=== PATIENT | female | born 2000 | race Caucasian/White ===

== ENCOUNTER 2022-02-22 16:40 | Outpatient (CLI) | payer OTHER ==
[~2022-02-22 16:40] MED LIST: CLARITIN10 MG PO; IBUPROFEN600 MG PO; ZANTAC150 MG PO
== END 2022-02-22 19:19 | disposition home or self-care (01) ==
LOC: GENOP 16:40 → ER1 16:40 → EDSTATUS 16:45 → GENOP 19:19
PROVIDERS: Obstetrics & Gynecology
DX: O99.891 Other specified diseases and conditions complicating pregnancy (principal); N89.8 Other specified noninflammatory disorders of vagina; R10.10 Upper abdominal pain, unspecified; O99.333 Smoking (tobacco) complicating pregnancy, third trimester; F17.290 Nicotine dependence, other tobacco product, uncomplicated; Z3A.29 29 weeks gestation of pregnancy
CPT/HCPCS: 80307; 81001; 87210; G0463

== ENCOUNTER 2022-04-26 15:59 | Outpatient (CLI) | payer OTHER | END 2022-04-26 19:56 | disposition home or self-care (01) | LOC: GENOP 15:59 → OB 16:40 → GENOP 19:56 | DX: O47.1 False labor at or after 37 completed weeks of gestation (principal); O99.343 Other mental disorders complicating pregnancy, third trimester; F32.A Depression, unspecified; F41.9 Anxiety disorder, unspecified; Z3A.38 38 weeks gestation of pregnancy | CPT/HCPCS: 96360; 96361 ==

== ENCOUNTER 2022-05-03 19:37 | Inpatient (IN) | payer OTHER ==
[2022-05-03 23:32] LABS: HEMOGLOBIN 8.5 gm/dl (12.3-15.3); RED BLOOD COUNT 3.7 M/UL (4.00-5.10); WHITE BLOOD COUNT 12.6 K/UL (4.5-11.0)
[2022-05-04] MEDS ORDERED: HYDROCODON-ACE1 EAC4 PO (12:30)
[2022-05-04] MEDS ORDERED: IBUPROFEN600 MG PO (12:30)
[2022-05-04] MEDS ORDERED: DOCUSATE SODIU100 MG PO (12:30)
[2022-05-05 06:24] LABS: HEMOGLOBIN 7.3 gm/dl (12.3-15.3)
[2022-05-06] MEDS ORDERED: FERROUS SULFAT325 MG PO (10:38)
== END 2022-05-07 16:27 | disposition home or self-care (01) | DRG 787 ==
LOC: GENOP 19:37 → OB 05-04 09:25
PROVIDERS: Obstetrics & Gynecology; ADMIT Obstetrics & Gynecology
PROC: 4A1HXCZ Monitoring of Products of Conception, Cardiac Rate, External Approach (ICD-10-PCS; 2022-05-03)
PROC: 3E0234Z Introduction of Serum, Toxoid and Vaccine into Muscle, Percutaneous Approach (ICD-10-PCS; 2022-05-04)
PROC: 10D00Z1 Extraction of Products of Conception, Low, Open Approach (ICD-10-PCS; principal; 2022-05-04 11:05)
DX: O99.62 Diseases of the digestive system complicating childbirth (principal); F11.20 Opioid dependence, uncomplicated; D62 Acute posthemorrhagic anemia; Z3A.39 39 weeks gestation of pregnancy; Z20.822 Contact with and (suspected) exposure to COVID-19; Z37.0 Single live birth; E86.0 Dehydration; K21.9 Gastro-esophageal reflux disease without esophagitis; O36.63X0 Maternal care for excessive fetal growth, third trimester, not applicable or unspecified; O99.284 Endocrine, nutritional and metabolic diseases complicating childbirth; O99.02 Anemia complicating childbirth; O99.324 Drug use complicating childbirth; O99.334 Smoking (tobacco) complicating childbirth; F17.210 Nicotine dependence, cigarettes, uncomplicated; Z28.310 Unvaccinated for COVID-19; Z81.8 Family history of other mental and behavioral disorders; Z83.3 Family history of diabetes mellitus; Z80.3 Family history of malignant neoplasm of breast; Z84.1 Family history of disorders of kidney and ureter; Z23 Encounter for immunization
CPT/HCPCS: 36415; 80307; 81001; 82800; 85014; 85018; 85025; 90707; C9113; J0690; J1170; J1200; J1885; J2210; J2250; J2274; J2370; J2405; J2550; J2590; J3010